=== PATIENT | female | born 1975 | race Caucasian/White ===

== ENCOUNTER 2016-02-19 16:46 | Emergency (ER) | payer OTHER ==
[2016-02-19 18:32] VITALS: BP 117/74
--- NOTE | 2016-02-19 18:38 | UC ---
Dental HPI - HPI Summary HPI Summary: all lower teeth pulled by dentist yesterday. Pain today and she thinks it is draining a lot of fluid. Minimal bleeding. She states dentist did not give her anything for pain, no antibiotic indicated. No fever. No vomiting. She is a chronic pain patient, uses weekly Butrans patch and also TID tramadol. She says she has more tramadol left. Can't take NSAIDs because of potential interaction with other meds. - History of Current Complaint Chief Complaint: UCDentalProblem Stated Complaint: DENTAL Time Seen by Provider: 02/19/16 18:19 Hx Obtained From: Patient Hx Last Menstrual Period: N/A Onset/Duration: Gradual Onset, Lasting Days - 2 Severity: Moderate Aggravating: Chewing Alleviating: Nothing Related History: Previous Dental Care on Same Tooth - all teeth extracted yesterday - Allergies/Home Medications Allergies/Adverse Reactions: Allergies Allergy/AdvReac Type Severity Reaction Status Date / Time Penicillins Allergy Severe Hives, Verified 02/19/16 18:32 lips swelling Gabapentin Allergy Hives Verified 02/19/16 18:32 PMH/Surg Hx/FS Hx/Imm Hx Endocrine History Of: Reports: Diabetes - 02/02/16 was out of insulin for 12 days and was able to start again Denies: Thyroid Disease, Hyperthyroidism, Hypothyroidism, Dyslipidemia Cardiovascular History Of: Reports: Hypertension Denies: Cardiac Disorders, Pacemaker/ICD, Myocardial Infarction, Congestive Heart Failure, Atrial Fibrillation, Deep Vein Thrombosis, Bleeding Disorders Respiratory History Of: Reports: Asthma Denies: COPD, Bronchitis, Pneumonia, Pulmonary Embolism GI/ History Of: Reports: Gall Bladder Disease Denies: Gastroesophageal Reflux, Ulcer, Gastrointestinal Bleed, Kidney Stones , Diverticulitis, Renal Disease, Urosepsis Neurological History Of: Reports: Migraine Denies: TIA, CVA, Dementia, Seizures Psychological History Of: Reports: Anxiety, Depression Denies: Bipolar Disorder, Schizophrenia, Post Traumatic Stress Disorder Cancer History Of: Denies: Lung Cancer, Colorectal Cancer, Breast Cancer, Prostate Cancer, Cervical Cancer Other History Of: Anticoagulant Therapy - Aspirin 81 mg/day. Negative For: HIV, Hepatitis B, Hepatitis C - Surgical History Surgical History: Yes Surgery Procedure, Year, and Place: cardiac catheterization about 05/2012, hysterectomy, bilateral carpal tunneL, left ulnar nerve surgery - Family History Known Family History: Positive: Hypertension, Diabetes, Respiratory Disease - Social History Occupation: Disabled Lives: With Family Alcohol Use: None Substance Use Type: None Smoking Status (MU): Former Smoker Type: Cigarettes Amount Used/How Often: 5 cigarettes/day Have You Smoked in the Last Year: Yes Household Exposure Type: Cigarettes Review of Systems Constitutional: Negative Skin: Negative Eyes: Negative ENT: Dental Pain Respiratory: Negative Cardiovascular: Negative Gastrointestinal: Negative Genitourinary: Negative Motor: Negative Neurovascular: Negative Musculoskeletal: Negative Neurological: Negative Psychological: Negative All Other Systems Reviewed And Are Negative: Yes Physical Exam Triage Information Reviewed: Yes Appearance: Well-Appearing, Well-Nourished, Pain Distress - appears uncomfortable; not drooling or spitting into cup. Vital Signs: Initial Vital Signs Temp 98.6 F 02/19/16 18:26 Pulse 89 02/19/16 18:26 Resp 22 02/19/16 18:26 BP 117/74 02/19/16 18:26 Vital Signs Reviewed: Yes Eye Exam: Normal ENT: Positive: Hearing grossly normal, Pharynx normal. Negative: Nasal congestion, Nasal drainage, Tonsillar swelling, Tonsillar exudate, Trismus, Muffled/hoarse voice Dental: Positive: Other: - all lower teeth extracted; sutures in place. Gums mildly swollen. No obvious pus drainage. No active bleeding Neck exam: Normal Neck: Positive: Supple Respiratory Exam: Normal Cardiovascular Exam: Normal Musculoskeletal Exam: Normal Neurological Exam: Normal Psychological Exam: Normal Skin Exam: Normal Dental Complaint Course/Dx - Differential Dx/Diagnosis Differential Diagnosis/Dx: Odontogenic Pain, Peridontic Disease, Post Extraction Pain Provider Diagnoses: post extraction pain Discharge - Discharge Plan Condition: Stable Disposition: HOME Prescriptions: Cephalexin CAP* [Keflex CAP*] 500 mg PO TID #30 cap Lidocaine 2% VISCOUS* 3 ml TOPICAL Q3HR PRN #1 btl PRN Reason: mouth pain Patient Education Materials: Toothache (ED) Referrals: Lizbeth Graff PA [Primary Care Provider] - Additional Instructions: continue your usual pain medications. If the gums are hurting, paint the numbing solution on the area. Ice often helps as well. Rinse with salt water if you are getting a lot of drainage. Call the dentist tomorrow if you are still having problems
== END 2016-02-19 18:45 | disposition home or self-care (01) ==
LOC: UCCORT 16:46
DX: K08.409 Partial loss of teeth, unspecified cause, unspecified class (principal); E11.9 Type 2 diabetes mellitus without complications; Z88.0 Allergy status to penicillin; Z88.8 Allergy status to other drugs, medicaments and biological substances; Z79.4 Long term (current) use of insulin; Z87.891 Personal history of nicotine dependence
CPT/HCPCS: 99212; G0463

== ENCOUNTER 2016-03-11 12:15 | Emergency (ER) | payer OTHER ==
[2016-03-11 12:57] VITALS: BP 117/59
[2016-03-11] MEDS ORDERED: Ketorolac INJ* 60 MG/2 ML VIAL IM ONE (13:01)
[2016-03-11] MEDS ORDERED: HYDROcodone/ACETAMIN 5-325 MG* 1 TAB PO ONE (13:02)
--- NOTE | 2016-03-11 13:12 | UC ---
Abdominal Pain Female HPI - HPI Summary HPI Summary: 40 Y/O FEMALE WITH PMHX OF DM, CHRONIC PANCREATITIS , CHRONIC PAIN 4 DAYS HX OF EPIGASTRIC ABDOMINAL PAIN MUCH WORSE OVER THE PAST 1 DAY, RADIATING TO HER BACK , MILD NAUSEA AND SOME DIARRHEA, NO FEVER, NO CHILLS, NO DYSURIA - History of Current Complaint Chief Complaint: UCAbdominalPain Stated Complaint: ABD PAIN/HIP PAIN Time Seen by Provider: 03/11/16 12:18 Hx Obtained From: Patient Hx Last Menstrual Period: N/A Onset/Duration: Gradual Onset, Lasting Days - 1, Still Present Timing: Constant Severity Initially: Moderate Severity Currently: Moderate Location: Epigastric Radiates: Yes Radiates to: Back Character: Aching Aggravating Factor(s): Food, Movement Alleviating Factor(s): Nothing Associated Signs and Symptoms: Positive: Back Pain, Decreased Appetite, Nausea, Diarrhea. Negative: Fever, Cough, Chest Pain, Dizzy, Constipation, Blood in Stool, Urinary Symptoms, Vaginal Bleeding, Vaginal Discharge, Vomiting Allergies/Adverse Reactions: Allergies Allergy/AdvReac Type Severity Reaction Status Date / Time Penicillins Allergy Severe Hives, Verified 03/11/16 12:45 lips swelling Gabapentin Allergy Hives Verified 03/11/16 12:45 OTHER: VARIOUS HTN, ABX MEDS Allergy Difficulty Uncoded 03/11/16 12:45 UNKNOW Breathing PMH/Surg Hx/FS Hx/Imm Hx Endocrine History Of: Reports: Diabetes - 02/02/16 was out of insulin for 12 days and was able to start again Denies: Thyroid Disease, Hyperthyroidism, Hypothyroidism, Dyslipidemia Cardiovascular History Of: Reports: Hypertension Denies: Cardiac Disorders, Pacemaker/ICD, Myocardial Infarction, Congestive Heart Failure, Atrial Fibrillation, Deep Vein Thrombosis, Bleeding Disorders Respiratory History Of: Reports: Asthma Denies: COPD, Bronchitis, Pneumonia, Pulmonary Embolism GI/ History Of: Reports: Gall Bladder Disease Denies: Gastroesophageal Reflux, Ulcer, Gastrointestinal Bleed, Kidney Stones , Diverticulitis, Renal Disease, Urosepsis Neurological History Of: Reports: Migraine Denies: TIA, CVA, Dementia, Seizures Psychological History Of: Reports: Anxiety, Depression Denies: Bipolar Disorder, Schizophrenia, Post Traumatic Stress Disorder Cancer History Of: Denies: Lung Cancer, Colorectal Cancer, Breast Cancer, Prostate Cancer, Cervical Cancer Other History Of: Anticoagulant Therapy - Aspirin 81 mg/day. Negative For: HIV, Hepatitis B, Hepatitis C - Surgical History Surgical History: Yes Surgery Procedure, Year, and Place: cardiac catheterization about 05/2012, hysterectomy, bilateral carpal tunneL, left ulnar nerve surgery - Family History Known Family History: Positive: Hypertension, Diabetes, Respiratory Disease - Social History Alcohol Use: None Substance Use Type: None Smoking Status (MU): Heavy Every Day Tobacco Smoker Type: Cigarettes Amount Used/How Often: <1 PPD Length of Time of Smoking/Using Tobacco: 24 Years Have You Smoked in the Last Year: Yes Household Exposure Type: Cigarettes - Immunization History Most Recent Influenza Vaccination: November 2015 Review of Systems Constitutional: Chills, Fatigue Skin: Negative Eyes: Negative ENT: Negative Respiratory: Negative Cardiovascular: Negative Gastrointestinal: Abdominal Pain, Diarrhea Genitourinary: Negative All Other Systems Reviewed And Are Negative: Yes Physical Exam Triage Information Reviewed: Yes Appearance: Ill-Appearing Vital Signs: Initial Vital Signs Temp 98.2 F 03/11/16 12:43 Pulse 104 03/11/16 12:43 Resp 16 03/11/16 12:43 BP 117/59 03/11/16 12:43 Pulse Ox 97 03/11/16 12:43 Eye Exam: Normal Eyes: Positive: Conjunctiva Clear ENT: Positive: Normal ENT inspection, Hearing grossly normal, Pharynx normal Neck: Positive: Supple, Nontender, No Lymphadenopathy Respiratory: Positive: Chest non-tender, Lungs clear, Normal breath sounds Cardiovascular: Positive: RRR, No Murmur, Pulses Normal Abdomen Description: Positive: Soft, Other: - RUQ ABDOMINAL TENDERNESS / EPIGASTRIC TENDERNESS. Negative: CVA Tenderness (R), CVA Tenderness (L), Distended, Guarding Bowel Sounds: Positive: Present Musculoskeletal: Positive: Strength Intact, No Edema Neurological: Positive: Alert Skin Exam: Normal Abd Pain Female Course/Dx - Course Course Of Treatment: ABDOMINAL PAIN. HX OF DM , CHRONIC PANCREATITIS ,. WILL TRANSFER THE PT. TO [facility] , SPOKE TO DR WALKER ABOUT THE TRANSFER. IT IS THE PTS REQUESTS TO GO TO [facility] AND NOT [facility] - Differential Dx/Diagnosis Provider Diagnoses: ABDOMINAL PAIN Discharge - Discharge Plan Condition: Fair Disposition: TRANS HIGHER LVL OF CARE FAC
== END 2016-03-11 13:27 | disposition short-term general hospital (02) ==
LOC: UCCORT 12:15
DX: R10.13 Epigastric pain (principal); R11.0 Nausea; R19.7 Diarrhea, unspecified; Z88.0 Allergy status to penicillin; Z88.8 Allergy status to other drugs, medicaments and biological substances; F17.210 Nicotine dependence, cigarettes, uncomplicated
CPT/HCPCS: 99213; G0463

== ENCOUNTER 2016-03-11 14:24 | Emergency (ER) | payer OTHER ==
[2016-03-11] MEDS ORDERED: Ondansetron INJ* 2 MG/ML VIAL IV ONE (14:58)
[2016-03-11] MEDS ORDERED: Ketorolac INJ* 30 MG/ML 1 ML VIAL IV ONE (14:58)
[2016-03-11] MEDS ORDERED: Morphine INJ* 4 MG/ML 1 ML CARPUJECT IV ONE (14:58)
[2016-03-11] MEDS: NS 0.9% 1000 ML* 2,000 ML IV ONE ×2 (15:00→17:00)
[2016-03-11 15:09] LABS: Hematocrit 43 % (35-47); Hemoglobin 14.5 g/dl (12.0-16.0); Mean Corpuscular HGB Conc 34 g/dl (31-36); Mean Corpuscular Hemoglobin 32 pg (27-31); Mean Corpuscular Volume 95 fL (80-97); Mean Platelet Volume 8 um3 (7.4-10.4); Red Blood Count 4.48 10^6/ul (4.0-5.4); Red Cell Distribution Width 14 % (10.5-15)
[2016-03-11 15:21] LABS: Albumin 3.9 g/dL (3.2-5.2); BUN/Creatinine Ratio 7.8 (8-20); C Reactive Protein 25.35 mg/L (< 5.00); Calcium 9.1 mg/dL (8.6-10.3); EGFR African American 172.7 (>60); EGFR Non-African American 134.3 (>60); Globulin 2.8 g/dL (2-4); Potassium 3.8 mmol/L (3.5-5.0); Total Bilirubin 0.4 mg/dL (0.2-1.0); Total Protein 6.7 g/dL (6.4-8.9)
[2016-03-11 15:30] LABS: Urine Bacteria Absent (Absent); Urine Bilirubin Negative (Negative); Urine Glucose 3+(>=500 mg/dL) (Negative); Urine Nitrite Negative (Negative)
[2016-03-11] MEDS ORDERED: HYDROmorphone INJ* 1 MG/ML CARPUJECT SYRINGE IV ONE ×2 (16:00→17:39)
[2016-03-11] MEDS ORDERED: NS 0.9% 1000 ML* 2,000 ML IV ONE (16:52)
[2016-03-11] MEDS ORDERED: Iodixanol* (CONTRAST) 320 MG/ML 100 ML SDV IV ONE (17:04)
--- NOTE | 2016-03-11 18:30 | RAD ---
INDICATION: Abdominal pain COMPARISON: CT abdomen and pelvis 01/25/2016 TECHNIQUE: Axial source images were obtained from the hemidiaphragms to the symphysis pubis following administration of oral and intravenous contrast. 125 mL Visipaque 320 was utilized. Coronal and sagittal reconstructed images were acquired. Lung bases: There is bibasilar atelectasis, unchanged. There are no effusions. Liver: The liver is enlarged with findings of hepatic steatosis. There are no masses. There is no ductal dilatation. Gallbladder: There are no calcified gallstones. There is no evidence of wall thickening or pericholecystic fluid. Spleen: The spleen is normal in size. There are no masses. Pancreas: There is no focal pancreatic mass or ductal dilatation. Adrenal glands: There is no evidence of adrenal mass. Kidneys: The kidneys are normal in size and position. There are prompt nephrograms and there is prompt excretion bilaterally. There are no renal parenchymal masses. There is no evidence of nephrolithiasis. Adenopathy: There is no evidence of adenopathy by size criteria. Fluid collections: There are no free or localized fluid collections. Vessels:There are no significant atherosclerotic changes involving the aorta. There is no focal aneurysm. The iliac vessels are normal in caliber. The IVC appears normal. GI tract: There are no acute CT bowel findings. There is no obstruction. The stomach and small bowel appear normal. The lower GI tract is normal. The cecum, ileocecal valve, and terminal ileum appear normal. The appendix is visualized and appear normal. Pelvic organs: There is hysterectomy. There is no adnexal mass Bladder: There are no bladder masses. Abdominal and pelvic soft tissues: The extraperitoneal abdominal and pelvic soft tissues appear normal.. Osseous structures: There are no acute osseous findings. Other: None IMPRESSION: NO ACUTE CT FINDINGS. NO MASS OR INFLAMMATORY CHANGE. HEPATIC STEATOSIS
[2016-03-11 19:38] VITALS: BP 85/40
--- NOTE | 2016-03-11 20:02 | ED ---
Kayden Malhotra Janilya, scribed for Gage Garduno MD on 03/11/16 at 1503 . Abdominal Pain/Female - HPI Summary HPI Summary: A 40 y/o female [facility] [facility] presenting w/ a gradual onset of constant abd pain starting 3 days ago. Severity rated 9/10. Eating makes the pain worse. Pt reports n/v/d, cold sweats, burning urinating. Pt denies fever. Pt takes aspirin. Pt has her gallbladder, appendix intact. Pt did not have Caesarean section. PMHx DMII for 7 years. PSHx endoscopic procedure w/ biopsy 2 weeks ago in [place]. - History of Current Complaint Chief Complaint: EDAbdPain Stated Complaint: ABD PAIN Time Seen by Provider: 03/11/16 14:34 Hx Obtained From: Patient Hx Last Menstrual Period: N/A Onset/Duration: Gradual Onset, Lasting Days, Still Present Timing: Constant Severity Initially: Moderate Severity Currently: Moderate Pain Intensity: 9 Pain Scale Used: 0-10 Numeric Location: Diffuse Radiates: No Character: Dull Aggravating Factor(s): Food Alleviating Factor(s): Nothing Associated Signs and Symptoms: Positive: Negative, Nausea, Vomiting, Diarrhea Allergies/Adverse Reactions: Allergies Allergy/AdvReac Type Severity Reaction Status Date / Time Penicillins Allergy Severe Hives, Verified 03/11/16 12:45 lips swelling Gabapentin Allergy Hives Verified 03/11/16 12:45 OTHER: VARIOUS HTN, ABX MEDS Allergy Difficulty Uncoded 03/11/16 12:45 UNKNOW Breathing Home Medications: Home Medications Magnesium Chloride EC TAB* [Slow Mag EC TAB*] 64 mg PO DAILY 03/11/16 [History Confirmed 03/11/16] Metoprolol Succinate XL TAB* [Toprol XL TAB*] 25 mg PO DAILY 03/11/16 [History Confirmed 03/11/16] QUEtiapine TAB* [SEROquel TAB*] 200 mg PO BEDTIME 03/11/16 [History Confirmed ] traMADol TAB* [Ultram*] 50 mg PO TID PRN MDD 150 mg 03/11/16 [History Confirmed 03/11/16] PMH/Surg Hx/FS Hx/Imm Hx Endocrine/Hematology History: Reports: Hx Anticoagulant Therapy - Aspirin 81 mg/ day., Hx Diabetes - 02/02/16 was out of insulin for 12 days and was able to start again Denies: Hx Thyroid Disease Cardiovascular History: Reports: Hx Hypertension Denies: Hx Congestive Heart Failure, Hx Deep Vein Thrombosis, Hx Myocardial Infarction, Hx Pacemaker/ICD Respiratory History: Reports: Hx Asthma, Hx Chronic Bronchitis, Hx Seasonal Allergies Denies: Hx Chronic Obstructive Pulmonary Disease (COPD), Hx Lung Cancer, Hx Pneumonia, Hx Pulmonary Embolism GI History: Reports: Hx Gall Bladder Disease, Hx Gastroesophageal Reflux Disease , Other GI Disorders - Pancreatitis Denies: Hx Gastrointestinal Bleed, Hx Ulcer, Hx Urosepsis History: Denies: Hx Kidney Stones, Hx Renal Disease Musculoskeletal History: Reports: Hx Arthritis, Hx Fibromyalgia, Hx Scoliosis Sensory History: Denies: Hx Hearing Aid Neurological History: Reports: Hx Headaches, Hx Migraine Denies: Hx Dementia, Hx Seizures, Hx Transient Ischemic Attacks (TIA) Psychiatric History: Reports: Hx Anxiety, Hx Depression Denies: Hx Panic Disorder, Hx Schizophrenia, Hx Bipolar Disorder - Surgical History Surgery Procedure, Year, and Place: cardiac catheterization about 05/2012, hysterectomy, bilateral carpal tunneL, left ulnar nerve surgery Infectious Disease History: No Infectious Disease History: Denies: Traveled Outside the [place] in Last 30 Days - Family History Known Family History: Positive: Hypertension, Diabetes, Respiratory Disease - Social History Alcohol Use: None Substance Use Type: Reports: None Smoking Status (MU): Heavy Every Day Tobacco Smoker Type: Cigarettes Amount Used/How Often: <1 PPD Length of Time of Smoking/Using Tobacco: 24 Years Have You Smoked in the Last Year: Yes Review of Systems Constitutional: Other - cold sweats Negative: Fever Positive: Abdominal Pain, Vomiting, Diarrhea, Nausea Positive: burning All Other Systems Reviewed And Are Negative: Yes Physical Exam Triage Information Reviewed: Yes Vital Signs On Initial Exam: Initial Vitals Temp Pulse Resp BP Pulse Ox 97.6 F 88 18 103/62 95 03/11/16 14:30 03/11/16 14:30 03/11/16 14:30 03/11/16 14:30 03/11/16 14:30 Vital Signs Reviewed: Yes Appearance: Positive: Well-Appearing, Pain Distress - mildly Skin: Positive: Warm, Skin Color Reflects Adequate Perfusion, Dry Head/Face: Positive: Normal Head/Face Inspection Eyes: Positive: EOMI, GUANACO ENT: Positive: Normal ENT inspection Neck: Positive: Supple, Nontender Respiratory/Lung Sounds: Positive: Clear to Auscultation, Breath Sounds Present Cardiovascular: Positive: RRR Abdomen Description: Positive: Other: - Abd diffusely tender, more in LUQ. Negative: Nontender Bowel Sounds: Positive: Present Musculoskeletal: Positive: Normal, Strength/ROM Intact Neurological: Positive: Normal, Sensory/Motor Intact, Alert, Oriented to Person Place, Time Psychiatric: Positive: Affect/Mood Appropriate Diagnostics - Vital Signs Vital Signs Temp Pulse Resp BP Pulse Ox 03/11/16 14:30 97.6 F 88 18 103/62 95 - Laboratory Lab Results: Lab Results 03/11/16 03/11/16 03/11/16 Range/Units 14:45 14:45 14:45 WBC 6.0 (3.5-10.8) 10^3/ul RBC 4.48 (4.0-5.4) 10^6/ul Hgb 14.5 (12.0-16.0) g/dl Hct 43 (35-47) % MCV 95 (80-97) fL MCH 32 H (27-31) pg MCHC 34 (31-36) g/dl RDW 14 (10.5-15) % Plt Count 172 (150-450) 10^3/ul MPV 8 (7.4-10.4) um3 Neut % (Auto) 51.7 (38-83) % Lymph % (Auto) 39.5 (25-47) % Grady % (Auto) 6.4 (1-9) % Eos % (Auto) 1.8 (0-6) % Baso % (Auto) 0.6 (0-2) % Absolute Neuts (auto) 3.1 (1.5-7.7) 10^3/ul Absolute Lymphs (auto) 2.4 (1.0-4.8) 10^3/ul Absolute Monos (auto) 0.4 (0-0.8) 10^3/ul Absolute Eos (auto) 0.1 (0-0.6) 10^3/ul Absolute Basos (auto) 0 (0-0.2) 10^3/ul Absolute Nucleated RBC 0 10^3/ul Nucleated RBC % 0.1 Sodium 137 (133-145) mmol/L Potassium 3.8 (3.5-5.0) mmol/L Chloride 101 (101-111) mmol/L Carbon Dioxide 28 (22-32) mmol/L Anion Gap 8 (2-11) mmol/L BUN 4 L (6-24) mg/dL Creatinine 0.51 (0.51-0.95) mg/dL Est GFR ( Amer) 172.7 (>60) Est GFR (Non-Af Amer) 134.3 (>60) BUN/Creatinine Ratio 7.8 L (8-20) Glucose 363 H (70-100) mg/dL POC Glucose (mg/dL) (74-106) mg/dL Lactic Acid 2.8 H* (0.5-2.0) mmol/L Calcium 9.1 (8.6-10.3) mg/dL Total Bilirubin 0.40 (0.2-1.0) mg/dL AST 43 H (13-39) U/L ALT 42 (7-52) U/L Alkaline Phosphatase 77 (34-104) U/L Total Creatine Kinase 55 (10-223) U/L C-Reactive Protein 25.35 H (< 5.00) mg/L Total Protein 6.7 (6.4-8.9) g/dL Albumin 3.9 (3.2-5.2) g/dL Globulin 2.8 (2-4) g/dL Albumin/Globulin Ratio 1.4 (1-3) Lipase 140 H (11.0-82.0) U/L Beta HCG, Quant 3.62 mIU/mL Urine Color Urine Appearance Urine pH (5-9) Ur Specific [place] (1.010-1.030) Urine Protein (Negative) Urine Ketones (Negative) Urine Blood (Negative) Urine Nitrate (Negative) Urine Bilirubin (Negative) Urine Urobilinogen (Negative) Ur Leukocyte Esterase (Negative) Urine WBC (Auto) (Absent) Urine RBC (Auto) (Absent) Ur Squamous Epith Cells (Absent) Urine Bacteria (Absent) Urine Glucose (Negative) 03/11/16 03/11/16 Range/Units 15:13 17:14 WBC (3.5-10.8) 10^3/ul RBC (4.0-5.4) 10^6/ul Hgb (12.0-16.0) g/dl Hct (35-47) % MCV (80-97) fL MCH (27-31) pg MCHC (31-36) g/dl RDW (10.5-15) % Plt Count (150-450) 10^3/ul MPV (7.4-10.4) um3 Neut % (Auto) (38-83) % Lymph % (Auto) (25-47) % Grady % (Auto) (1-9) % Eos % (Auto) (0-6) % Baso % (Auto) (0-2) % Absolute Neuts (auto) (1.5-7.7) 10^3/ul Absolute Lymphs (auto) (1.0-4.8) 10^3/ul Absolute Monos (auto) (0-0.8) 10^3/ul Absolute Eos (auto) (0-0.6) 10^3/ul Absolute Basos (auto) (0-0.2) 10^3/ul Absolute Nucleated RBC 10^3/ul Nucleated RBC % Sodium (133-145) mmol/L Potassium (3.5-5.0) mmol/L Chloride (101-111) mmol/L Carbon Dioxide (22-32) mmol/L Anion Gap (2-11) mmol/L BUN (6-24) mg/dL Creatinine (0.51-0.95) mg/dL Est GFR ( Amer) (>60) Est GFR (Non-Af Amer) (>60) BUN/Creatinine Ratio (8-20) Glucose (70-100) mg/dL POC Glucose (mg/dL) 264 H (74-106) mg/dL Lactic Acid (0.5-2.0) mmol/L Calcium (8.6-10.3) mg/dL Total Bilirubin (0.2-1.0) mg/dL AST (13-39) U/L ALT (7-52) U/L Alkaline Phosphatase (34-104) U/L Total Creatine Kinase (10-223) U/L C-Reactive Protein (< 5.00) mg/L Total Protein (6.4-8.9) g/dL Albumin (3.2-5.2) g/dL Globulin (2-4) g/dL Albumin/Globulin Ratio (1-3) Lipase (11.0-82.0) U/L Beta HCG, Quant mIU/mL Urine Color Yellow Urine Appearance Cloudy Urine pH 5.0 (5-9) Ur Specific [place] 1.032 H (1.010-1.030) Urine Protein Negative (Negative) Urine Ketones Negative (Negative) Urine Blood Negative (Negative) Urine Nitrate Negative (Negative) Urine Bilirubin Negative (Negative) Urine Urobilinogen Negative (Negative) Ur Leukocyte Esterase Trace H (Negative) Urine WBC (Auto) Trace(0-5/hpf) (Absent) Urine RBC (Auto) Absent (Absent) Ur Squamous Epith Cells Present H (Absent) Urine Bacteria Absent (Absent) Urine Glucose 3+(>=500 mg/dl) H (Negative) Result Diagrams: 03/11/16 14:45 03/11/16 14:45 Lab Statement: Any lab studies that have been ordered have been reviewed, and results considered in the medical decision making process. - CT abd/pel CT Interpretation: No Acute Changes - IMPRESSION: NO ACUTE CT FINDINGS. NO MASS OR INFLAMMATORY CHANGE. HEPATIC STEATOSIS CT Interpretation Completed By: Radiologist Abdominal Pain Fem Course/Dx - Course Course Of Treatment: PATIENT HAS HD THIS PAIN FOR MONTHS AND IS SEEN IN THE PAIN CLINIC. DISCUSSED RESULTS WITH PATIENT WHO REQUESTS ADMISSION. HOSPITALIST SAW PATIENT IN CONSULTATION. SEE THEIR CONSULTATION NOTE. DISCHARGE HOME STABLE. - Diagnoses Provider Diagnoses: Chronic abdominal pain - Provider Notifications Discussed Care Of Patient With: Dr. Hanley (hospitalist) at 1830: agrees to evaluate pt for admission. Discharge - Discharge Plan Condition: Stable Disposition: HOME Patient Education Materials: Abdominal Pain (ED) Referrals: [facility] [Outside] Lizbeth Graff PA [Primary Care Provider] - Additional Instructions: FOLLOW UP WITH YOUR DOCTOR. FOLLOW UP WITH THE PAIN MEDICINE CLINIC. RETURN TO THE EMERGENCY DEPARTMENT FOR ANY WORSENING OF YOUR CONDITION OR QUESTIONS OR CONCERNS. The documentation as recorded by the Kayden le Janilya accurately reflects the service I personally performed and the decisions made by me, Gage Garduno MD.
--- NOTE | 2016-03-11 23:52 | CONS ---
CONSULTATION REPORT: DATE OF CONSULT: 03/11/16 - EMERGENCY DEPT PRIMARY CARE PROVIDER: JOY Banks PAIN MANAGEMENT PROVIDER: Adeline Angela NP CONSULTING PROVIDER: JOY Cornell SUPERVISING PHYSICIAN: Armand Kelly MD REQUESTING PROVIDER: Emergency department physician, Dr. Garduno. CHIEF COMPLAINT: Abdominal pain, nausea, and diarrhea. HISTORY OF PRESENT ILLNESS: This is a 40-year-old female with a history of pancreatitis, fibromyalgia, diabetic neuropathy, insulin-dependent diabetes, spinal stenosis, migraine headaches, and carpal tunnel syndrome as well as a relatively recent diagnosis of celiac disease. The patient originally presented to the [facility] earlier today with complaints of upper abdominal pain and reported history of chronic pancreatitis and for this reason , was transferred to the emergency department for further evaluation. The patient underwent thorough workup including a CT of the abdomen and pelvis, which shows no acute etiology for her abdominal pain. The patient received multiple doses of Dilaudid in the emergency department and continued to request more for pain management. She states that she does not feel that her chronic medications are affectively managing her pain. Emergency department provider, Dr. Garduno, requested hospitalist consultation in regards to whether admission was appropriate for pain control. Reviewed pain management notes, her last appointment was at the end of January. Apparently, the patient has not been terribly forthright in regards to prior emergency department visits and other prescribed medications. For this reason, pain management provider appropriately was reluctant to escalate opioid doses at her last appointment despite her continued complaints of severe pain. The conditions of her pain contract were reiterated at that appointment. The patient does admit that her pain today is not terribly different from her chronic pain. She was mostly concerned about the nausea and diarrhea that she has subsequently developed. She has been afebrile at home and the diarrhea has been nonbloody. No associated vomiting. PAST MEDICAL HISTORY: 1. Chronic pancreatitis. 2. Fibromyalgia. 3. Diabetic neuropathy. 4. Spinal stenosis. 5. Migraine headaches. 6. Carpal tunnel syndrome. 7. Insulin-dependent diabetes. 8. Hypertension. 9. Obesity. HOME MEDICATIONS: 1. Xanax 0.5 mg p.o. t.i.d. as needed for anxiety. 2. Nebulized albuterol 2.5 mg/3 mL nebulized q.i.d. as needed for shortness of breath. 3. Aspirin 81 mg p.o. daily. 4. Butrans patch 15 mcg weekly. 5. Cetirizine 10 mg p.o. daily. 6. Depakote 500 mg p.o. at bedtime. 7. Lasix 40 mg p.o. daily. 8. Insulin detemir 60 units subcu in the morning. 9. Humalog KwikPen 10 units subcu at mealtime. 10. Magnesium chloride 64 mg p.o. daily. 11. Metoprolol succinate 25 mg p.o. daily. 12. Relafen 500 mg p.o. 4 times daily. 13. Paxil 40 mg p.o. daily. 14. Lyrica 100 mg p.o. twice daily. 15. Seroquel 200 mg p.o. at bedtime. 16. Simethicone 180 mg p.o. 4 times daily. 17. Ambien 10 mg p.o. at bedtime. 18. Tramadol 50 mg p.o. t.i.d. as needed for breakthrough pain. PHYSICAL EXAM: General: This is a middle-aged obese female, who appears somewhat depressed but is in no acute distress and actually is having difficulty keeping her eyes open during the exam. Initial Vital Signs: Temperature 97.6 degrees Fahrenheit, pulse 88 beats per minute, respiratory rate 18 per minute, oxygen saturation 95% on room air, and blood pressure 103/ 62 mmHg. HEENT: Head is normocephalic and atraumatic with moist mucous membranes. Respiratory: Lungs are clear to auscultation without wheezes, crackles, or rhonchi. Cardiovascular: Heart has a regular rate and rhythm without murmurs, rubs, or gallops. Abdomen: Abdomen is soft. Some tenderness to palpation in the epigastric region and bowel sounds are present. Extremities : No lower extremity edema. Skin: No concerning rashes or lesions. LABORATORY EVALUATION: CBC shows a white blood cell count of 6000; hemoglobin 14.5 g/dL; and platelet count of 172,000. Comprehensive metabolic panel shows a sodium of 137 mmol/L, potassium 3.8 mmol/L , BUN of 4, creatinine 0.51, and random glucose of 363 mg/dL. Lactic acid of 2.8. AST of 43, ALT 42, and alk phos 77. CRP of 25. Lipase 140. Beta-hCG is negative. Urinalysis is positive for trace leuk esterase and glucose. DIAGNOSTIC STUDIES AND IMAGING: CT of the abdomen and pelvis shows no acute pathology. ASSESSMENT AND PLAN: This is a 40-year-old female with a history of chronic pain including pain from chronic pancreatitis, fibromyalgia, diabetic neuropathy , spinal stenosis, migraine headaches, and carpal tunnel syndrome, who presented to the emergency department with complaints of abdominal pain and accompanying nausea and diarrhea. No acute pathology appreciated on workup. Hospitalist group has been asked to help determine appropriate disposition. 1. Abdominal pain - the patient's pain is admittedly consistent with her chronic pain syndrome. I did not feel that a hospitalization admission would be beneficial as anything maybe detrimental to escalate her opioid use. She does seem to be closely followed by the [facility] and does have an upcoming appointment next week. The patient is strongly encouraged to contact their office tomorrow to notify them of her emergency department visit. In regards to her nausea and diarrhea, there is no acute pathology appreciated on workup, she may have a mild viral gastroenteritis that is inducing her new acute symptoms. 2. Celiac disease - the patient states that this is a relatively new diagnosis for her. She is aware that she needs to avoid gluten and it is unclear how consistent she has been with that. Discussed with her about resources available at the [facility] for Healthy Living and suggest that she call for an appointment with the hearing aid specialist to help her any dietary changes that this might help significantly with her abdominal pain and may also be another explanation for her nausea and diarrhea. 3. Insulin-dependent diabetes - the patient has hyperglycemia in the emergency department. Last hemoglobin A1C is from 2012. The patient states that over the last couple of days she has hyperglycemic, but prior to that, her glucose has been relatively well controlled in tight numbers between 90 and 120 mg/dL. 4. Diabetic neuropathy - the patient is strongly encouraged to maintain excellent glucose or glycemic control in order to prevent progression of her neuropathy. 5. Fibromyalgia. 6. Migraine syndrome. DISPOSITION: Discussed with the patient that I do not believe that hospital admission is necessary or appropriate at this time. This is also discussed with emergency department physician. Both the patient and ER physician are in agreement for discharge to home. 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 Some of her symptoms maybe contributed by her celiac disease and recommended contacting the [facility] for Healthy Living. She may also benefit from a celiac or splenic nerve block for relief from her chronic abdominal pain secondary to chronic pancreatitis. JOY CORNELL CC: JOY Banks; Adeline Angela, CUT OUT MACHINE OPERATOR* [id number]/[facility] #: [id number] [facility] CENTERNikunj
== END 2016-03-11 20:51 | disposition home or self-care (01) ==
LOC: ED 14:24
DX: R10.9 Unspecified abdominal pain (principal); G89.29 Other chronic pain; F17.210 Nicotine dependence, cigarettes, uncomplicated; I10 Essential (primary) hypertension; Z79.82 Long term (current) use of aspirin; E11.9 Type 2 diabetes mellitus without complications; Z79.4 Long term (current) use of insulin; Z88.0 Allergy status to penicillin
CPT/HCPCS: 36415; 74177; 80053; 81003; 81015; 82550; 83605; 83690; 84702; 85025; 86140; 87086; 96360; 96374; 96375; 96376; 99213; 99283; G0463; J1170; J1885; J2270; J2405; Q9967

== ENCOUNTER 2016-03-16 10:46 | Emergency (ER) | payer OTHER ==
[2016-03-16 11:53] VITALS: BP 101/58
--- NOTE | 2016-03-16 12:11 | UC ---
Abdominal Pain Female HPI - HPI Summary HPI Summary: chronic abdominal pain x 2 months has been seen by her pcp, ED recently , multiple urgent care visits, no nausea, no vomiting, no diarrhea, no urinary sx. no fever has a appointment to see her GI on 04/08/16 - History of Current Complaint Chief Complaint: UCAbdominalPain Stated Complaint: ABDOMINAL/BACK PAIN LEFT Time Seen by Provider: 03/16/16 11:55 Hx Obtained From: Patient Hx Last Menstrual Period: n/a Onset/Duration: Gradual Onset, Lasting Weeks - 10, Still Present Timing: Constant Severity Initially: Moderate Severity Currently: Moderate Location: Diffuse, Discrete At: LUQ Radiates: Yes Radiates to: Back Character: Aching, Cramping Aggravating Factor(s): Food Alleviating Factor(s): Nothing Associated Signs and Symptoms: Negative: Diaphoresis, Fever, Cough, Chest Pain, Dizzy, Back Pain, Constipation, Blood in Stool, Urinary Symptoms, Decreased Appetite, Vaginal Bleeding, Vaginal Discharge, Nausea, Vomiting, Diarrhea Allergies/Adverse Reactions: Allergies Allergy/AdvReac Type Severity Reaction Status Date / Time Penicillins Allergy Severe Hives, Verified 03/16/16 11:53 lips swelling Gabapentin Allergy Hives Verified 03/16/16 11:53 OTHER: VARIOUS HTN, ABX MEDS Allergy Difficulty Uncoded 03/16/16 11:53 UNKNOW Breathing gluten AdvReac Stomach Uncoded 03/16/16 11:54 Cramps PMH/Surg Hx/FS Hx/Imm Hx Endocrine History Of: Reports: Diabetes - insulin Denies: Thyroid Disease, Hyperthyroidism, Hypothyroidism, Dyslipidemia Cardiovascular History Of: Reports: Cardiac Disorders - heart palpatations, Hypertension Denies: Pacemaker/ICD, Myocardial Infarction, Congestive Heart Failure, Atrial Fibrillation, Deep Vein Thrombosis, Bleeding Disorders Respiratory History Of: Reports: Asthma Denies: COPD, Bronchitis, Pneumonia, Pulmonary Embolism GI/ History Of: Reports: Gall Bladder Disease Denies: Gastroesophageal Reflux, Ulcer, Gastrointestinal Bleed, Kidney Stones , Diverticulitis, Renal Disease, Urosepsis Neurological History Of: Reports: Migraine Denies: TIA, CVA, Dementia, Seizures Psychological History Of: Reports: Anxiety, Depression Denies: Bipolar Disorder, Schizophrenia, Post Traumatic Stress Disorder Cancer History Of: Denies: Lung Cancer, Colorectal Cancer, Breast Cancer, Prostate Cancer, Cervical Cancer Other History Of: Anticoagulant Therapy - Aspirin 81 mg/day. Negative For: HIV, Hepatitis B, Hepatitis C - Surgical History Surgical History: Yes Surgery Procedure, Year, and Place: cardiac catheterization about 05/2012, hysterectomy, bilateral carpal tunneL, left ulnar nerve surgery - Family History Known Family History: Positive: Hypertension, Diabetes, Respiratory Disease - Social History Alcohol Use: None Substance Use Type: None Smoking Status (MU): Light Every Day Tobacco Smoker Type: Cigarettes Amount Used/How Often: <1 PPD Length of Time of Smoking/Using Tobacco: 24 Years Have You Smoked in the Last Year: Yes Household Exposure Type: Cigarettes - Immunization History Most Recent Influenza Vaccination: November 2015 Review of Systems Constitutional: Negative Skin: Negative Eyes: Negative ENT: Negative Gastrointestinal: Abdominal Pain All Other Systems Reviewed And Are Negative: Yes Physical Exam Triage Information Reviewed: Yes Appearance: Well-Appearing, No Pain Distress, Well-Nourished Vital Signs: Initial Vital Signs Temp 98.3 F 03/16/16 11:43 Pulse 91 03/16/16 11:43 Resp 16 03/16/16 11:43 BP 101/58 03/16/16 11:43 Pulse Ox 98 03/16/16 11:43 Vital Signs Reviewed: Yes Eyes: Positive: Conjunctiva Clear ENT: Positive: Normal ENT inspection, Hearing grossly normal, Pharynx normal Neck: Positive: Supple, Nontender, No Lymphadenopathy Respiratory: Positive: Chest non-tender, Lungs clear, Normal breath sounds Cardiovascular: Positive: RRR, No Murmur, Pulses Normal Abdomen Description: Positive: Soft, Other: - diffuse tenderness. Negative: CVA Tenderness (R), CVA Tenderness (L), Distended, Guarding Bowel Sounds: Positive: Present Skin Exam: Normal Abd Pain Female Course/Dx - Differential Dx/Diagnosis Provider Diagnoses: chronic abdominal pain Discharge - Discharge Plan Condition: Stable Disposition: HOME Patient Education Materials: Abdominal Pain (ED) Referrals: Lizbeth Graff PA [Primary Care Provider] - 7 Days Additional Instructions: follow up with your GI doctor on 04/08/16
== END 2016-03-16 12:20 | disposition home or self-care (01) ==
LOC: UCCORT 10:46
DX: R10.9 Unspecified abdominal pain (principal); I10 Essential (primary) hypertension; E11.9 Type 2 diabetes mellitus without complications; F17.210 Nicotine dependence, cigarettes, uncomplicated; Z79.4 Long term (current) use of insulin; Z79.82 Long term (current) use of aspirin; Z88.0 Allergy status to penicillin; Z88.1 Allergy status to other antibiotic agents; Z88.8 Allergy status to other drugs, medicaments and biological substances
CPT/HCPCS: 99212; G0463

== ENCOUNTER 2016-03-24 18:18 | Emergency (ER) | payer OTHER ==
[2016-03-24 20:56] VITALS: BP 112/74
[2016-03-24] MEDS ORDERED: Ondansetron INJ* 2 MG/ML VIAL IV ONE (22:00)
[2016-03-24] MEDS ORDERED: Ketorolac INJ* 30 MG/ML 1 ML VIAL IV ONE (22:00)
--- NOTE | 2016-03-24 22:10 | UC ---
Abdominal Pain Female HPI - HPI Summary HPI Summary: 40 yo female with DM (on insulin) and chronic pancreatitis presents with RUQ pain radiating to back x 3 days n/v no CP or SOB no UTI symptoms - History of Current Complaint Chief Complaint: UCAbdominalPain Stated Complaint: PAIN LEFT SIDE/BACK AND RIGHT SIDE Time Seen by Provider: 03/24/16 21:16 Hx Obtained From: Patient Hx Last Menstrual Period: n/a Onset/Duration: Sudden Onset, Lasting Days - 3 Severity Initially: Severe Severity Currently: Severe Pain Intensity: 8 Pain Scale Used: 0-10 Numeric Location: Discrete At: RUQ Radiates to: Back Character: Colicy Aggravating Factor(s): Nothing Associated Signs and Symptoms: Positive: Back Pain, Decreased Appetite, Nausea, Vomiting, Diarrhea. Negative: Diaphoresis, Fever, Cough, Chest Pain, Dizzy, Constipation, Blood in Stool, Urinary Symptoms Allergies/Adverse Reactions: Allergies Allergy/AdvReac Type Severity Reaction Status Date / Time Penicillins Allergy Severe Hives, Verified 03/24/16 20:44 lips swelling Gabapentin Allergy Hives Verified 03/24/16 20:44 OTHER: VARIOUS HTN, ABX MEDS Allergy Difficulty Uncoded 03/24/16 20:44 UNKNOW Breathing gluten AdvReac Stomach Uncoded 03/24/16 20:44 Cramps PMH/Surg Hx/FS Hx/Imm Hx Endocrine History Of: Reports: Diabetes - insulin Denies: Thyroid Disease, Hyperthyroidism, Hypothyroidism, Dyslipidemia Cardiovascular History Of: Reports: Cardiac Disorders - heart palpatations, Hypertension Denies: Pacemaker/ICD, Myocardial Infarction, Congestive Heart Failure, Atrial Fibrillation, Deep Vein Thrombosis, Bleeding Disorders Respiratory History Of: Reports: Asthma Denies: COPD, Bronchitis, Pneumonia, Pulmonary Embolism GI/ History Of: Reports: Gall Bladder Disease Denies: Gastroesophageal Reflux, Ulcer, Gastrointestinal Bleed, Kidney Stones , Diverticulitis, Renal Disease, Urosepsis Neurological History Of: Reports: Migraine Denies: TIA, CVA, Dementia, Seizures Psychological History Of: Reports: Anxiety, Depression Denies: Bipolar Disorder, Schizophrenia, Post Traumatic Stress Disorder Cancer History Of: Denies: Lung Cancer, Colorectal Cancer, Breast Cancer, Prostate Cancer, Cervical Cancer Other History Of: Anticoagulant Therapy - Aspirin 81 mg/day. Negative For: HIV, Hepatitis B, Hepatitis C - Surgical History Surgical History: Yes Surgery Procedure, Year, and Place: cardiac catheterization about 05/2012, hysterectomy, bilateral carpal tunneL, left ulnar nerve surgery - Family History Known Family History: Positive: Hypertension, Diabetes, Respiratory Disease - Social History Alcohol Use: None Substance Use Type: None Smoking Status (MU): Current Every Day Smoker Type: Cigarettes Amount Used/How Often: 5 CIGS PER DAY Length of Time of Smoking/Using Tobacco: 24 Years Have You Smoked in the Last Year: Yes Household Exposure Type: Cigarettes - Immunization History Most Recent Influenza Vaccination: November 2015 Review of Systems Constitutional: Negative Skin: Negative Eyes: Negative ENT: Negative Respiratory: Negative Cardiovascular: Negative Gastrointestinal: Abdominal Pain, Vomiting Genitourinary: Negative Motor: Negative Neurovascular: Negative Musculoskeletal: Negative Neurological: Negative Psychological: Negative All Other Systems Reviewed And Are Negative: Yes Physical Exam Triage Information Reviewed: Yes Appearance: Well-Appearing, No Pain Distress, Well-Nourished Vital Signs: Initial Vital Signs Temp 97.3 F 03/24/16 20:48 Pulse 91 03/24/16 20:48 Resp 18 03/24/16 20:48 BP 112/74 03/24/16 20:48 Pulse Ox 96 03/24/16 20:48 Vital Signs Reviewed: Yes Eyes: Positive: Conjunctiva Clear ENT: Positive: Hearing grossly normal. Negative: Nasal congestion, Nasal drainage, Trismus, Muffled/hoarse voice Neck: Positive: Supple, Nontender Respiratory: Positive: Lungs clear, Normal breath sounds, No respiratory distress, No accessory muscle use Cardiovascular: Positive: RRR, No Murmur Abdomen Description: Positive: No Organomegaly, Soft. Negative: Nontender - tender RUQ, CVA Tenderness (R), CVA Tenderness (L) Musculoskeletal: Positive: ROM Intact Neurological: Positive: Alert Psychological Exam: Normal Skin Exam: Normal Abd Pain Female Course/Dx - Course Course Of Treatment: d/w with Dr. Minor at [facility]. accepts - Differential Dx/Diagnosis Provider Diagnoses: RUQ abd pain of uncertain cause Discharge - Discharge Plan Condition: Stable Disposition: [facility] Referrals: Lizbeth Graff PA [Primary Care Provider] -
== END 2016-03-24 22:26 | disposition short-term general hospital (02) ==
LOC: UCCORT 18:18
DX: R10.11 Right upper quadrant pain (principal); E11.9 Type 2 diabetes mellitus without complications; Z79.4 Long term (current) use of insulin; K86.1 Other chronic pancreatitis; Z88.0 Allergy status to penicillin; F17.210 Nicotine dependence, cigarettes, uncomplicated
CPT/HCPCS: 96374; 96375; 99213; G0463; J1885; J2405

== ENCOUNTER 2016-03-28 17:25 | Emergency (ER) | payer OTHER | END 2016-03-28 18:30 | disposition left against medical advice (07) | LOC: UCCORT 17:25 | DX: R10.9 Unspecified abdominal pain (principal); Z53.21 Procedure and treatment not carried out due to patient leaving prior to being seen by health care provider ==

== ENCOUNTER 2017-03-22 11:23 | Emergency (ER) | payer OTHER ==
[2017-03-22 12:19] LABS: ABS Basophils 0 10^3/ul (0-0.2); ABS Eosinophils 0.1 10^3/ul (0-0.6); ABS Lymphocytes 2.4 10^3/ul (1.0-4.8); ABS Monocytes 0.5 10^3/ul (0-0.8); ABS Neutrophils 6.7 10^3/ul (1.5-7.7); ABS Nucleated RBC 0 10^3/ul; Eosinophil % 1.4 % (0-6); Hematocrit 45 % (35-47); Hemoglobin 15.5 g/dl (12.0-16.0); Lymphocyte % 24.5 % (25-47); Mean Corpuscular HGB Conc 35 g/dl (31-36); Mean Corpuscular Hemoglobin 33 pg (27-31); Mean Corpuscular Volume 96 fL (80-97); Mean Platelet Volume 8 um3 (7.4-10.4); Nucleated Red Blood Cells % 0.1; Platelet Count 190 10^3/ul (150-450); Red Blood Count 4.64 10^6/ul (4.0-5.4); Red Cell Distribution Width 14 % (10.5-15); White Blood Count 9.8 10^3/ul (3.5-10.8)
[2017-03-22 12:30] LABS: EGFR Non-African American 102.8 (>60)
--- OUTSIDE RECORDS SUMMARY | 2017-03-22 12:48 | XMS REPORT ---
:1975 External Reference #:[id number] Author Organization [facility] Address [address] [place] [address] Phone [phone] Care Team Providers Name Role Phone Fransisco Pacheco DPM Care Team Information Lawn Caretaker Unavailable Lizbeth Dorantes NP Primary Care Physician Unavailable Payers Type Date Identification Numbers Payment Provider Subscriber Commercial Effective: Policy Number: [id number] Isak Cruz 2007 Group Name: [facility] #[id number] PayID: [id number] [place] [address] Workers Compensation Onset: 2009 Policy Number: State Insurance Funmilayo Cruz [id number] Fund Group Number: [id number] [address] [place] [address] PayID: [id number] [place] [address] Problems Date Description Provider Status Onset: 12/10/2010 Lesion of ulnar nerve Brittni Xiong M.D. Active Onset: 12/10/2010 Lesion Median Nerve Other Brittni Xiong M.D. Active Onset: 04/30/2014 Neck pain Erick Lo M.D. Active Onset: 11/29/2012 Shoulder-hand syndrome Erick Lo M.D. Active Onset: 11/29/2012 Myalgia & Myositis Unspec Erick Lo M.D. Active Family History Date Family Member(s) Problem(s) Comments General Cancer General Fibromyalgia General Diabetes, Non Insulin Dependent General Autism Father Hypertension Father Heart Disease Mother Hypertension Mother Heart Disease Mother maternal grandfather-colon cancer,heart issues,DM Mother maternal grandmother-cancer,DM,Heart disease,HTN Social History Type Date Description Comments Marital Status Lives With and children Occupation Disabled ETOH Use Denies alcohol use Recreational Drug Use Denies Drug Use Smoking Patient is a former smoker quit in 02/2017 Daily Caffeine Consumes on average 2 cups of regular coffee per day Exercise Type/Frequency Exercises regularly upper body strengthening and walking Allergies, Adverse Reactions, Alerts Date Description Reaction Status Severity Comments 07/02/2010 Latex active 07/02/2010 Amoxicillin active 11/02/2011 Gabapentin shaky from chest active d/c 10/31,saw [employer]ASS WORK[employer] 11/01 up/can't hold head replaced w/Lyrica up/feeling in lips/tong 04/30/2014 Doxycycline Nausea and Vomiting active 03/04/2017 Adhesives active 03/04/2017 Ketorolac active 03/04/2017 Nicotine active pruritis 03/04/2017 Trazodone active headache,involuntary movements 03/04/2017 Ciprofloxacin active 03/04/2017 Metformin active diarrhea 03/04/2017 Hydromorphone active oversedation at 8mg 03/04/2017 Sucralfate active Medications Medication Date Status Form Strength Qnty SIG Indications Ordering Provider Paxil Active Tablets 30mg 1 by mouth Unknown /0000 every day Mucinex Active Tablets ER 600mg 1 tab by Unknown /0000 12HR mouth twice a day as needed Acetaminophen Active Tablets 500mg 1 Tab By Unknown /0000 Mouth as needed Quetiapine Active Tablets 400mg take one Unknown Fumarate /0000 tablet by mouth once daily at bedtime Sumatriptan Active Tablets 100mg take 1 Unknown Succinate /0000 tab at onset of head ache,may repeat 1 tab after 2h as needed Fexofenadine HCL Active Tablets 180mg 1 po at Unknown /0000 bedtime Fluticasone Active Suspension 50mcg/Act 2 sprays Unknown Propionate /0000 each nostril daily Farxiga Active Tablets 10mg 1 by mouth Unknown /0000 every day Lancets Micro Active for use Unknown Thin /0000 three times per day and prn Lyrica Active Capsules 200mg 1 pill by Unknown /0000 mouth three times a day Free Style Lite Active three Unknown Blood Glucose /0000 times Monitoring daily Loperamide HCL Active take one Unknown /0000 capsule by mouth as needed after each unformed BM Epinephrine Active Solution 0.3mg/0.3 1 Unknown /0000 Auto-Inject ML injection as needed allergic reaction Furosemide 00 Active Tablets 20mg 1 by mouth Unknown /0000 every day Metoprolol Active Tablets ER 25mg 1 by mouth Unknown Succinate ER /0000 24HR every day Cyclobenzaprine Active Tablets 5mg take one Unknown HCL /0000 tablet by mouth every 8 hours prn. may take a second tablet if first not effetive. Diazepam Active Tablets 5mg 1/2 tab Unknown by mouth as needed Basaglar Kwikpen Active Solution 100Unit/M 80 units Unknown Pen-Inject L today 03/18/17 then drops to 40 units Lyrica 01/03 Hx Capsules 50mg 30cap 1 po q am Erick Triana s (in [place], - addition M.D. 04/20 to 75 mg at hs already rx'ed) Lyrica 11/01 Hx Capsules 75mg 60cap 1 po bid Erick Triana s Rafa Lo M.DBaldomero 11/29 Diazepam 10/28 Hx Tablets 5mg 6tabs 1 or 2 po Erick JBaldomero two hours Wally, - prior to M.D. 11/29 repeat up to once per hour if needed. Gabapentin 10/28 Hx Capsules 100mg 60cap 1 po qhs Erick JBaldomero s to start Wally, - and june M.D. 10/31 as tolerated to 2 po qhs then 1 po qam and 2 po hs, gradually up to 3 tid prn pain [place] 05/19 Hx Tablets 250mg 50tab 1 po tid s prn muscle Xiong, - spasm M.D. 11/29 [place] 01/28 Hx Tablets 5-325mg 40tab 1-2 po s q4-6 hr Inga, - prn pain M.D. 11/29 Metformin ER Hx 500mg 90uni 1 po qd Unknown ts - 04/30 Lexapro Hx Tablets 10mg 30tab 1 po qd Unknown / s - 11/29 Motrin Ib Hx Tablets 200mg 60tab prn Unknown / s - 11/29 Losartan 00/00 Hx Tablets 50mg Unknown Potassium /0000 - 04/30 Simvastatin 00 Hx Tablets 10mg Unknown /0000 - 04/30 Invokana Hx Tablets 300mg 1 by mouth Unknown /0000 every day - 03/02 Lantus Solostar Hx Solution 100Unit/M 10 units Unknown /0000 Pen-Inject L daily - 03/02 Tradjenta Hx Tablets 5mg 1 by mouth Unknown /0000 every day - 03/02 Atorvastatin Hx Tablets 10mg 1 by mouth Unknown Calcium /0000 every day - 03/02 Ibuprofen Hx Capsules 600mg as needed Unknown /0000 - 03/02 Chantix Hx Starting 0.5mg 1 po x 11. Unknown /0000 Todd and 2 po - X42,1 po 03/17 everyday 3 days then 1 po bid x 4 days then 2 po bid. Take with food. 1 week before quit date Motrin Ib Hx Tablets 200mg 1-2 twice Unknown /0000 a day as - needed 03/17 Sudafed Hx Tablets 30mg 1-2 tabs Unknown Congestion /0000 every 4-6 - hours as 03/17 needed congestion Triamcinolone Hx apply thin Unknown Acetonide /0000 film - daily as 03/17 Hydrocortisone Hx 2.5% apply to Unknown /0000 affected - area twice 03/17 daily prn Nicotine Hx 1 piece Unknown Polacrilex /0000 every 1-2 - hrs prn 03/17 Multi Vitamin 00 Hx Tablets 1 by mouth Unknown /0000 every day - 03/17 Humalog Kwikpen 00 Hx Solution 100Unit/M inject 20 Unknown /0000 Pen-Inject L units - before 03/17. Levemir 00 Hx Solution 100Unit/M 80 units Unknown Flextouch /0000 Pen-Inject L SQ in - A.M. 03/17 Aspirin 00/ Hx Tablets 81mg 1 by mouth Unknown /0000 every day - 03/17 Prempro 00 Hx Tablets 0.3-1.5mg 1 by mouth Unknown /0000 every day - 03/17 [facility] 00 Hx Tablets 10mg 1 by mouth Unknown /0000 every day - 03/17 Medications Administered in Office Medication Date Status Form Strength Qnty SIG Indications Ordering Provider Depomedrol Administered Injection Brittni 80MG 013 Chidi Xiong Depomedrol Administered Injection Brittni 80MG 012 Chidi Xiong Depomedrol Administered Injection Brittni 80MG 012 Chidi Xiong Depomedrol Administered Injection Brittni 80MG 012 Chidi Xiong Vital Signs Date Vital Result Comment 03/18/2017 Height 64.75 inches 5'4.75" Weight 222.00 lb Heart Rate 100 /min BP Systolic 86 mmHg Ra Regular Cuff BP Diastolic 70 mmHg Ra Regular Cuff BP Systolic Sitting 108 mmHg LA Regular Cuff BP Diastolic Sitting 78 mmHg LA Regular Cuff BP Systolic Standing 104 mmHg LA Regular Cuff BP Diastolic Standing 82 mmHg LA Regular Cuff Respiratory Rate 24 /min Pain Level 8 O2 % BldC Oximetry 95 % BMI (Body Mass Index) 37.2 kg/m2 04/30/2014 Height 63 inches 5'3" Weight 223.00 lb Heart Rate 76 /min BP Systolic Sitting 12 mmHg BP Diastolic Sitting 60 mmHg Pain Level 8 neck/ mookie shoulder BMI (Body Mass Index) 39.5 kg/m2 01/28/2011 Weight 223.00 lb Heart Rate 88 /min BP Systolic 132 mmHg BP Diastolic 80 mmHg Results Description No Information Procedures Date CPT Code Description Status 03/18/2017 64112 EKG Tracing & Interpretation Completed 05/03/201250496 Injection Single Tendon Origin/Insertion Completed 02/03/201232829 Inject Tendon Sheath Or Ligament Aponeurosis Eg Plantar Completed Fascia 10/07/201152434 Inject Tendon Sheath Or Ligament Aponeurosis Eg Plantar Completed Fascia 06/24/201159311 Inject Tendon Sheath Or Ligament Aponeurosis Eg Plantar Completed Fascia 02/02/2011 28334 Neuroplasty &/Or Transposition; Ulnar Nerve At Completed Elbow Encounters Type Date Location Provider CPT E/M Dx Office Visit 03/11/2016 [facility], [place] [address] R10.13 1:14p Hospitalists JOY Zavala K86.1 M79.7 E11.9 Office Visit 04/30/2014 2:20p Neurosurgery Services Erick Lo, 56744 729.1 Of [facility].D. 723.1 Office Visit 11/29/2012 10:40a Neurosurgery Services Erick Lo, 50565 729.1 Of Monitoring Engineer At [facility] 337.21 Office Visit 05/03/2012 11:15a Orthopedic Services Of Brittni Xiong 65385 354.2 Monitoring Engineer At [facility] 726.31 354.0 727.04 Office Visit 02/03/2012 10:15a [facility] Brittni Xiong 91440 726.31 Kassi M.DBaldomero 727.04 Office Visit 01/04/2012 11:00a Neurosurgery Services Erick Lo 84081 722.71 Of Monitoring Engineer M.D. Office Visit 12/21/2011 9:40a Neurosurgery Services Erick Lo 93445 722.71 Of Monitoring Engineer M.D. Office Visit 12/09/2011 10:15a [facility] [employer] [facility] Brittni Xiong 49433 726.31 Kassi Murillo 354.2 Office Visit 11/12/2011 11:40a Neurosurgery Services Erick Lo, 27681 781.0 Of Monitoring Engineer M.DBaldomero 723.1 Office Visit 10/29/2011 9:00a Neurosurgery Services Erick Lo, 79646 781.0 Of Monitoring Engineer M.D. Office Visit 09/09/2011 9:15a [facility] [employer] Brittni Xiong 72725 354.2 Kassi M.DBaldomero 726.31 723.1 Office Visit 07/01/2011 10:45a [facility] [employer] Brittni Xiong 51777 723.1 Monitoring Engineer M.D. Office Visit 06/17/2011 9:30a [facility] [employer] Brittni Xiong 79050 719.41 Kassi M.DBaldomero 719.41 723.1 719.41 723.1 Office Visit 04/15/2011 11:00a [facility] [employer] Brittni Xiong 13460 354.2 Kassi M.Alley 354.1 842.00 Office Visit 12/10/2010 11:00a [facility] [employer] Brittni Xiong 64276 354.2 Kassi Murillo 354.1 Office Visit 10/22/2010 10:15a [facility] [employer] [facility] Brittni Xiong, 16679 354.2 Kassi Murillo 354.1 842.00 Office Visit 09/24/2010 1:45p [facility] Igncaio Roblero M.D. 69370 354.2 At [place] 354.1 Office Visit 08/10/2010 2:15p [facility] Ignacio Roblero M.D. 92520 842.00 At [place] Office Visit 07/02/2010 10:00a [employer] [facility] Brittni Xiong, 51565 354.2 Kassi Murillo Plan of Care Future Appointment(s):03/28/2017 2:00 pm - Samuel Phillips DO FACC at [facility]03/23/2017 11:15 am - Nurse Visit IC at [facility]03/22/2017 11:00 am - Nurse Visit IC at [facility]03/24/2017 11 :00 am - Samuel Phillips DO FACC at [facility]03/18/2017 - Samuel Phillips DO [id number] Encounter for preprocedural cardiovascular examinationNew Orders:Stress Test, Exercise NuclearFollow up:Please have patient sign record release for 1. cardiac catheterization from [facility] 2.echocardiograms, stress test reports and most recent office note from Dr. Hills's office. 3. Recent [facility] ER notes, labs and CT scan from within last week Please schedule exercise stress MPI, 03/24/2017 at [facility] office with tx Follow up after bqcivqrP15.31 Abnormal electrocardiogram [ECG] [EKG]E11.69 Type 2 diabetes mellitus with other specified tgasxyuolubzJ31.201 Nicotine dependence, unspecified, in opagicspnC12.49 Family hx of ischem heart dis and oth dis of the circ sysR00.2 PalpitationsNew Orders:Holter Monitor
--- OUTSIDE RECORDS SUMMARY | 2017-03-22 12:48 | XMS REPORT ---
:1975 External Reference #:[id number] Author Organization [facility] Address [address] [place] [address] Phone [phone] Care Team Providers Name Role Phone Fransisco Pacheco DPM Care Team Information Neuropsychology Director Unavailable Lizbeth Dorantes NP Primary Care Physician Unavailable Payers Type Date Identification Numbers Payment Provider Subscriber Commercial Effective: Policy Number: [id number] Isak Cruz 2007 Group Name: [facility] #[id number] [address] PayID: [id number] [place] [address] Workers Compensation Onset: 2009 Policy Number: State Insurance Funmilayo Cruz [id number] Fund Group Number: [id number] [address] [place] [address] PayID: [id number] [place] [address] Problems Date Description Provider Status Onset: 12/10/2010 [...] Gabapentin shaky from chest active d/c 10/31,saw SAUSAGE COOKER 11/01 up/can't hold head replaced w/Lyrica up/feeling [...] prn muscle Xiong, - spasm M.D. 11/29 [place] 01/28 Hx Tablets 5-325mg 40tab 1-2 po [...] mouth Unknown /0000 every day - 03/17 [facility] 00 Hx Tablets 10mg 1 by [...] Procedures Date CPT Code Description Status 03/18/2017 47864 EKG Tracing & Interpretation Completed 05/03/201201182 Injection Single Tendon Origin/Insertion Completed 02/03/201281297 Inject Tendon Sheath Or Ligament Aponeurosis Eg Plantar Completed Fascia 10/07/201139996 Inject Tendon Sheath Or Ligament Aponeurosis Eg Plantar Completed Fascia 06/24/201193262 Inject Tendon Sheath Or Ligament Aponeurosis Eg Plantar Completed Fascia 02/02/2011 25204 Neuroplasty &/Or Transposition; Ulnar Nerve At Completed Elbow Encounters Type Date Location Provider CPT E/M Dx Office Visit 03/11/2016 [facility], [place] 53734 R10.13 1:14p Hospitalists JOY Zavala K86.1 M79.7 E11.9 Office Visit 04/30/2014 2:20p Neurosurgery Services Erick Lo, 22498 729.1 Of [facility].D. 723.1 Office Visit 11/29/2012 10:40a Neurosurgery Services Erick Lo, 63846 729.1 Of Track Laying Equipment Operator At [facility] 337.21 Office Visit 05/03/2012 11:15a Orthopedic Services Of Brittni Xiong 50733 354.2 Track Laying Equipment Operator At [facility] 726.31 354.0 727.04 Office Visit 02/03/2012 10:15a [facility] Brittni Xiong 67196 726.31 Kassi M.DBaldomero 727.04 Office Visit 01/04/2012 11:00a Neurosurgery Services Erick Lo 69712 722.71 Of Track Laying Equipment Operator M.D. Office Visit 12/21/2011 9:40a Neurosurgery Services Erick Lo 88790 722.71 Of Track Laying Equipment Operator M.D. Office Visit 12/09/2011 10:15a [facility] [employer] [facility] Brittni Xiong 35224 726.31 Kassi Murillo 354.2 Office Visit 11/12/2011 11:40a Neurosurgery Services Erick Lo, 12408 781.0 Of Track Laying Equipment Operator M.DBaldomero 723.1 Office Visit 10/29/2011 9:00a Neurosurgery Services Erick Lo, 02443 781.0 Of Track Laying Equipment Operator M.D. Office Visit 09/09/2011 9:15a [employer] [facility] Brittni Xiong 32502 354.2 Kassi M.DBaldomero 726.31 723.1 Office Visit 07/01/2011 10:45a [facility] [employer] [facility] Brittni Xiong 76274 723.1 Track Laying Equipment Operator M.D. Office Visit 06/17/2011 9:30a [facility] [employer] Brittni Xiong 95258 719.41 Kassi M.DBaldomero 719.41 723.1 719.41 723.1 Office Visit 04/15/2011 11:00a [employer] [facility] Brittni Xiong 35860 354.2 Kassi M.Alley 354.1 842.00 Office Visit 12/10/2010 11:00a [employer] [facility] Brittni Xiong 66167 354.2 Kassi Murillo 354.1 Office Visit 10/22/2010 10:15a [employer] [facility] Brittni Xiong, 10991 354.2 Kassi Murillo 354.1 842.00 Office Visit 09/24/2010 1:45p [facility] Ignacio Robelro M.D. 84152 354.2 At [place] 354.1 Office Visit 08/10/2010 2:15p [facility] Ignacio Roblero M.D. 38918 842.00 At [place] Office Visit 07/02/2010 10:00a [employer] [facility] Brittni Xiong, 95048 354.2 Kassi Murillo Plan of Care Future Appointment(s):03/28/2017 2:00 pm - Samuel Phillips DO FACC at [facility]03/23/2017 11:15 am - Nurse Visit IC at [facility]03/22/2017 11:00 am - Nurse Visit IC at [facility]03/24/2017 11 :00 am - Samuel Phillips DO FACC at [facility]03/18/2017 - Samuel Phillips DO [id number] Encounter for preprocedural cardiovascular examinationNew Orders:Stress Test, Exercise NuclearFollow up:Please have patient sign record release for 1. cardiac catheterization from [facility] 2.echocardiograms, stress test reports and most recent office note from Dr. Hills's office. 3. Recent [facility] ER notes, labs and CT scan from within last week Please schedule exercise stress MPI, 03/24/2017 at [facility] office with vt Follow up after ghvcpmtF66.31 Abnormal electrocardiogram [ECG] [EKG]E11.69 Type 2 diabetes mellitus with other specified dpsofuxoitcpD45.201 Nicotine dependence, unspecified, in ytfhocpegY89.49 Family hx of ischem heart dis and oth dis of the circ sysR00.2 PalpitationsNew Orders:Holter Monitor
--- NOTE | 2017-03-22 12:56 | RAD ---
Indication: Chest pain radiating to the LEFT side of neck and down LEFT arm. Comparison: March 11, 2016 CT abdomen and November 22, 2015 chest radiograph. Technique: Upright AP 1230 hours Report: Obesity limits image quality. Accounting for superimposed soft tissues the lungs and pleural spaces are clear. Negative for cardiomegaly. Upper normal central pulmonary vasculature. Foci of calcific tendinopathy noted at the LEFT shoulder rotator cuff. IMPRESSION: 1. No evidence for acute intrathoracic disease. 2. Incidental note of LEFT shoulder rotator cuff calcific tendinopathy which may be a source of pain. Correlate with clinical assessment
[2017-03-22 15:30] VITALS: BP 121/81
--- NOTE | 2017-03-23 18:12 | ED ---
Boy Malhotra Angela, scribed for Titus Ortiz MD on 03/22/17 at 1138 . HPI Chest Pain - HPI Summary HPI Summary: This pt is a 41 y/o female presenting to [facility] via EMS c/o left sided chest pain for a couple of months. Pt states her pain is intermittent, and it radiates to her neck and down her left arm. She rates her chest pain 6/10 in severity. Pt rates her abd pain 8/10 in severity. She states her chest pain is not elicited on exertion. She reports she was at [facility] today and Dr. Phillips advised the pt to come to the ED due to chest pain. EMS administered 1 nitroglycerin MOTOR BOSS. She does not know the last time she had a cat scan. PMHx: chronic pancreatitis. Pt states she has an upcoming gastric bypass soon and is not allowed to have aspirin but also reports she is allergic to aspirin ( reaction is hives). She reports she can't have NSAIDs either. - History of Current Complaint Time Seen by Provider: 03/22/17 11:25 Hx Obtained From: Patient Hx Last Menstrual Period: n/a Onset/Duration: Started Weeks Ago, Still Present Timing: Intermittent, Lasting Weeks Current Severity: Moderate Pain Intensity: 6 Pain Scale Used: 0-10 Numeric Chest Pain Location: Left Anterior Chest Pain Radiates: Yes Chest Pain Radiates To:: Arm - left, Neck Aggravating Factor(s): Nothing Alleviating Factor(s): Nothing Associated Signs and Symptoms: Positive: Chest Pain, Abdominal Pain - Allergy/Home Medications Allergies/Adverse Reactions: Allergies Allergy/AdvReac Type Severity Reaction Status Date / Time Penicillins Allergy Severe hives, Verified 03/22/17 12:26 lips swelling aspirin Allergy Unknown Hives Verified 03/22/17 12:26 gabapentin Allergy Unknown Hives Verified 03/22/17 12:26 OTHER: VARIOUS HTN, ABX MEDS Allergy Difficulty Uncoded 03/22/17 11:29 UNKNOW Breathing gluten AdvReac Stomach Uncoded 03/22/17 11:29 Cramps Home Medications: Home Medications Cyclobenzaprine TAB* [Flexeril 10 MG TAB*] 10 mg PO TID PRN 03/22/17 [History Confirmed 03/22/17] Dapagliflozin Propanediol [Farxiga] 10 mg PO DAILY 03/22/17 [History Confirmed 03/22/17] Fexofenadine (NF) [Nida 180 (NF)] 180 mg PO DAILY 03/22/17 [History Confirmed 03/22/17] Furosemide TAB* [Lasix TAB*] 20 mg PO DAILY 03/22/17 [History Confirmed 03/22/17 ] Insulin GLARGINE(*) [Lantus(*)] 80 units SUBCUT DAILY 03/22/17 [History Confirmed 03/22/17] Insulin LISPRO* [HumaLOG*] 10 units SUBCUT TID WITH MEALS PRN 03/22/17 [History Confirmed 03/22/17] PARoxetine HCL TAB* [Paxil TAB*] 30 mg PO DAILY 03/22/17 [History Confirmed 08/01] SUMAtriptan TAB* [Imitrex TAB*] 100 mg PO DAILY PRN 03/22/17 [History Confirmed 03/22/17] guaiFENesin ER TAB [Mucinex*] 600 mg PO BID 03/22/17 [History Confirmed 03/22/17 ] PMH/Surg Hx/FS Hx/Imm Hx Endocrine/Hematology History: Reports: Hx Anticoagulant Therapy - Aspirin 81 mg/ day., Hx Diabetes - insulin Denies: Hx Thyroid Disease Cardiovascular History: Reports: Hx Hypertension Denies: Hx Congestive Heart Failure, Hx Deep Vein Thrombosis, Hx Myocardial Infarction, Hx Pacemaker/ICD Respiratory History: Reports: Hx Asthma, Hx Chronic Bronchitis, Hx Seasonal Allergies Denies: Hx Chronic Obstructive Pulmonary Disease (COPD), Hx Lung Cancer, Hx Pneumonia, Hx Pulmonary Embolism GI History: Reports: Hx Gall Bladder Disease, Hx Gastroesophageal Reflux Disease , Other GI Disorders - Pancreatitis Denies: Hx Gastrointestinal Bleed, Hx Ulcer, Hx Urosepsis History: Denies: Hx Kidney Stones, Hx Renal Disease Musculoskeletal History: Reports: Hx Arthritis, Hx Fibromyalgia, Hx Scoliosis Sensory History: Denies: Hx Hearing Aid Neurological History: Reports: Hx Headaches, Hx Migraine Denies: Hx Dementia, Hx Seizures, Hx Transient Ischemic Attacks (TIA) Psychiatric History: Reports: Hx Anxiety, Hx Depression Denies: Hx Panic Disorder, Hx Schizophrenia, Hx Bipolar Disorder - Cancer History Cancer Type, 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 - Surgical History Surgery Procedure, Year, and Place: cardiac catheterization about 05/2012, hysterectomy, bilateral carpal tunneL, left ulnar nerve surgery Infectious Disease History: No Infectious Disease History: Denies: Traveled Outside the [place] in Last 30 Days - Family History Known Family History: Positive: Hypertension, Diabetes, Respiratory Disease - Social History Alcohol Use: None Substance Use Type: Reports: None Smoking Status (MU): Former Smoker Type: Cigarettes Amount Used/How Often: 1/2 PPD Length of Time of Smoking/Using Tobacco: 24 Years Have You Smoked in the Last Year: Yes Review of Systems Negative: Fever, Chills Positive: Chest Pain Positive: Abdominal Pain Musculoskeletal: Negative Skin: Negative Neurological: Negative All Other Systems Reviewed And Are Negative: Yes Physical Exam - Summary Physical Exam Summary: VITAL SIGNS: Reviewed. GENERAL: Patient is a well-developed and nourished (MALE OR FEMALE) who is lying comfortable in the stretcher. Patient is not in any acute respiratory distress. HEAD AND FACE: No signs of trauma. No ecchymosis, hematomas or skull depressions. No sinus tenderness. EYES: PERRLA, EOMI x 2, No injected conjunctiva, no nystagmus. EARS: Hearing grossly intact. Ear canals and tympanic membranes are within normal limits. MOUTH: Oropharynx within normal limits. NECK: Supple, trachea is midline, no adenopathy, no JVD, no carotid bruit, no c- spine tenderness, neck with full ROM. CHEST: Symmetric, no tenderness at palpation LUNGS: Clear to auscultation bilaterally. No wheezing or crackles. CVS: Regular rate and rhythm, S1 and S2 present, no murmurs or gallops appreciated. ABDOMEN: Soft. Left upper quadrant tenderness. No signs of distention. No rebound no guarding, and no masses palpated. Bowel sounds are normal. EXTREMITIES: FROM in all major joints, no edema, no cyanosis or clubbing. NEURO: Alert and oriented x 3. No acute neurological deficits. Speech is normal and follows commands. SKIN: Dry and warm Triage Information Reviewed: Yes Vital Signs On Initial Exam: Initial Vitals Temp Pulse Resp BP Pulse Ox 98.4 F 97 16 111/70 93 03/22/17 11:29 03/22/17 11:29 03/22/17 11:29 03/22/17 11:29 03/22/17 11:29 Vital Signs Reviewed: Yes Diagnostics - Vital Signs Vital Signs Temp Pulse Resp BP Pulse Ox 03/22/17 11:29 98.4 F 97 16 111/70 93 - Laboratory Lab Results: Lab Results 03/22/17 03/22/17 03/22/17 Range/Units 11:43 11:43 11:43 WBC 9.8 (3.5-10.8) 10^3/ul RBC 4.64 (4.0-5.4) 10^6/ul Hgb 15.5 (12.0-16.0) g/dl Hct 45 (35-47) % MCV 96 (80-97) fL MCH 33 H (27-31) pg MCHC 35 (31-36) g/dl RDW 14 (10.5-15) % Plt Count 190 (150-450) 10^3/ul MPV 8 (7.4-10.4) um3 Neut % (Auto) 69.0 (38-83) % Lymph % (Auto) 24.5 L (25-47) % Campbell % (Auto) 4.8 (1-9) % Eos % (Auto) 1.4 (0-6) % Baso % (Auto) 0.3 (0-2) % Absolute Neuts (auto) 6.7 (1.5-7.7) 10^3/ul Absolute Lymphs (auto) 2.4 (1.0-4.8) 10^3/ul Absolute Monos (auto) 0.5 (0-0.8) 10^3/ul Absolute Eos (auto) 0.1 (0-0.6) 10^3/ul Absolute Basos (auto) 0 (0-0.2) 10^3/ul Absolute Nucleated RBC 0 10^3/ul Nucleated RBC % 0.1 APTT (26.0-36.3) seconds Sodium 136 (133-145) mmol/L Potassium 3.5 (3.5-5.0) mmol/L Chloride 101 (101-111) mmol/L Carbon Dioxide 25 (22-32) mmol/L Anion Gap 10 (2-11) mmol/L BUN 6 (6-24) mg/dL Creatinine 0.64 (0.51-0.95) mg/dL Est GFR ( Amer) 132.2 (>60) Est GFR (Non-Af Amer) 102.8 (>60) BUN/Creatinine Ratio 9.4 (8-20) Glucose 216 H (70-100) mg/dL Lactic Acid (0.5-2.0) mmol/L Calcium 9.0 (8.6-10.3) mg/dL Magnesium 1.9 (1.9-2.7) mg/dL Total Bilirubin 0.70 (0.2-1.0) mg/dL AST 42 H (13-39) U/L ALT 49 (7-52) U/L Alkaline Phosphatase 42 (34-104) U/L Total Creatine Kinase 113 (10-223) U/L CK-MB (CK-2) 1.6 (0.6-6.3) ng/mL Troponin I 0.00 (<0.04) ng/mL B-Natriuretic Peptide 12 ( - 100) pg/mL Total Protein 7.3 (6.4-8.9) g/dL Albumin 4.2 (3.2-5.2) g/dL Globulin 3.1 (2-4) g/dL Albumin/Globulin Ratio 1.4 (1-3) Lipase 47 (11.0-82.0) U/L TSH 1.15 (0.34-5.60) mcIU/mL Beta HCG, Quant 3.94 mIU/mL 03/22/17 03/22/17 03/22/17 Range/Units 11:43 11:43 14:26 WBC (3.5-10.8) 10^3/ul RBC (4.0-5.4) 10^6/ul Hgb (12.0-16.0) g/dl Hct (35-47) % MCV (80-97) fL MCH (27-31) pg MCHC (31-36) g/dl RDW (10.5-15) % Plt Count (150-450) 10^3/ul MPV (7.4-10.4) um3 Neut % (Auto) (38-83) % Lymph % (Auto) (25-47) % Campbell % (Auto) (1-9) % Eos % (Auto) (0-6) % Baso % (Auto) (0-2) % Absolute Neuts (auto) (1.5-7.7) 10^3/ul Absolute Lymphs (auto) (1.0-4.8) 10^3/ul Absolute Monos (auto) (0-0.8) 10^3/ul Absolute Eos (auto) (0-0.6) 10^3/ul Absolute Basos (auto) (0-0.2) 10^3/ul Absolute Nucleated RBC 10^3/ul Nucleated RBC % APTT 36.3 (26.0-36.3) seconds Sodium (133-145) mmol/L Potassium (3.5-5.0) mmol/L Chloride (101-111) mmol/L Carbon Dioxide (22-32) mmol/L Anion Gap (2-11) mmol/L BUN (6-24) mg/dL Creatinine (0.51-0.95) mg/dL Est GFR ( Amer) (>60) Est GFR (Non-Af Amer) (>60) BUN/Creatinine Ratio (8-20) Glucose (70-100) mg/dL Lactic Acid 2.9 H* (0.5-2.0) mmol/L Calcium (8.6-10.3) mg/dL Magnesium (1.9-2.7) mg/dL Total Bilirubin (0.2-1.0) mg/dL AST (13-39) U/L ALT (7-52) U/L Alkaline Phosphatase (34-104) U/L Total Creatine Kinase (10-223) U/L CK-MB (CK-2) (0.6-6.3) ng/mL Troponin I 0.01 (<0.04) ng/mL B-Natriuretic Peptide ( - 100) pg/mL Total Protein (6.4-8.9) g/dL Albumin (3.2-5.2) g/dL Globulin (2-4) g/dL Albumin/Globulin Ratio (1-3) Lipase (11.0-82.0) U/L TSH (0.34-5.60) mcIU/mL Beta HCG, Quant mIU/mL Result Diagrams: 03/22/17 11:43 03/22/17 11:43 Lab Statement: Any lab studies that have been ordered have been reviewed, and results considered in the medical decision making process. - Radiology Chest XR Xray Interpretation: Positive (See Comments) - IMPRESSION: 1. No evidence for acute intrathoracic disease. 2. Incidental note of LEFT shoulder rotator cuff calcific tendinopathy which may be a source of pain. Correlate with clinical assessment. Dr. Ortiz has reviewed this radiology report. Radiology Interpretation Completed By: Radiologist - EKG 11:32 Cardiac Rate: NL EKG Rhythm: Sinus Rhythm - at 96 bpm EKG Interpretation: No ST elevations. Q waves in III and aVF. Chest Pain Course/Dx - Course Assessment/Plan: This pt is a 41 y/o female presenting to [facility] via EMS c/o left sided chest pain for a couple of months. Pt states her pain is intermittent , and it radiates to her neck and down her left arm. She rates her chest pain 6/ 10 in severity. Pt rates her abd pain 8/10 in severity. She states her chest pain is not elicited on exertion. She reports she was at [facility] today and Dr. Phillips advised the pt to come to the ED due to chest pain. EMS administered 1 nitroglycerin MOTOR BOSS. She does not know the last time she had a cat scan. PMHx: chronic pancreatitis. Pt states she has an upcoming gastric bypass soon and is not allowed to have aspirin but also reports she is allergic to aspirin (reaction is hives). She reports she can't have NSAIDs either. Test results without any significant abnormalities except for glucose of 116, lactic acid of 2.9. I believe the increased lactic acid is secondary to hyperglycemia. Trop 1 is 0.00 and troponin 2, 4 hours later, is 0.01. EKG shows no ST elevation. Chest XR: 1. No evidence for acute intrathoracic disease. 2. Incidental note of LEFT shoulder rotator cuff calcific tendinopathy which may be a source of pain. Therefore I do not believe the pt has an acute coronary syndrome. I think the pt has an atypical chest pain. Therefore, she will be discharged to home with follow up from her PCP. I also do not have suspicion for PE, since the pt is not hypoxic or tachycardic. Pt is hemodynamically stable, alert and oriented x3. - Chest Pain Differential Diagnosis/HQI/PQRI: Acute SC, ACS, Angina, CHF, Chest Wall, GI Disease - Diagnoses Provider Diagnoses: Atypical chest pain Discharge - Discharge Plan Condition: Stable Disposition: HOME Patient Education Materials: Chest Pain (ED) Referrals: Lizbeth Graff PA [Physician [employer]] - 3 Days Additional Instructions: Please follow up with your primary care provider. RETURN TO THE ED FOR ANY WORSENING SYMPTOMS. The documentation as recorded by the Boy le Angela accurately reflects the service I personally performed and the decisions made by me, Titus Ortiz MD.
== END 2017-03-22 15:30 | disposition home or self-care (01) ==
LOC: ED 11:23
DX: R07.89 Other chest pain (principal); M75.32 Calcific tendinitis of left shoulder; Z87.891 Personal history of nicotine dependence; Z88.6 Allergy status to analgesic agent; Z88.0 Allergy status to penicillin; Z88.8 Allergy status to other drugs, medicaments and biological substances
CPT/HCPCS: 36415; 71045; 80053; 82550; 82553; 83605; 83690; 83735; 83880; 84443; 84484; 84702; 85025; 85730; 93005; 99282

== ENCOUNTER 2019-07-31 07:30 | Inpatient (IN) ==
[2019-08-02] MEDS ORDERED: Vancomycin(*) 1,250 MG in NS 0.9% 250 ml 250 ML IVPB SCH
[2019-08-02] MEDS ORDERED: Lactated Ringers 1000 ml BAG 1,000 ML IV SCH (06:00)
[2019-08-02] MEDS ORDERED: Buffered Lidocaine 1% SYRIN 1 ml INTRADERM ONE (11:59)
[2019-08-02] MEDS ORDERED: Lidocaine 1% w EPI 1:200,000 SDV 30 ML VIAL ONE (13:35)
[2019-08-02] MEDS ORDERED: Bacitracin INJECTION 50,000 UNITS ONE (13:35)
[2019-08-02] MEDS ORDERED: Midazolam 5 mg/5 ml VIAL 1 mg/ml 5 ml VIAL (5 mg) ONE (13:58)
[2019-08-02] MEDS ORDERED: fentaNYL 250 mcg/5 ml 50 MCG/ML 5 ml VIAL (250 MCG) ONE (13:58)
[2019-08-02] MEDS ORDERED: Ondansetron 4 mg VIAL 2 MG/ML 2 ml VIAL ONE ×2 (14:00→16:38)
[2019-08-02] MEDS ORDERED: Propofol 10 MG/ML 20 ML BTL ONE (14:00)
[2019-08-02] MEDS ORDERED: Rocuronium 50 mg VIAL 10 mg/ml 5 ml VIAL (50 mg) ONE (14:00)
[2019-08-02] MEDS ORDERED: Dexamethasone IV 4 MG/ML VIAL 1 ml VIAL ONE ×3 (14:00→16:38)
[2019-08-02] MEDS ORDERED: Lidocaine 2% PF 5 ML VIAL ONE (14:00)
[2019-08-02] MEDS ORDERED: Ketamine HCL 50 mg/ml 10 ml VIAL (500 MG) ONE (14:01)
[2019-08-02] MEDS ORDERED: Remifentanil 2 MG VIAL ONE (14:01)
[2019-08-02] MEDS ORDERED: EPHEDrine (Pressors) 50 MG/ML VIAL ONE (15:53)
[2019-08-02] MEDS ORDERED: Phenylephrine 40 mcg/mL 10mL (400mcg) SYRINGE ONE (15:53)
[2019-08-02] MEDS ORDERED: HYDROmorphone 1 MG/1 ML SYRINGE ONE ×2 (17:35→18:14)
[2019-08-02] MEDS ORDERED: Flumazenil 0.5 mg/5 ml 0.1 MG/ML 5 ml VIAL IV PRN (17:49)
[2019-08-02] MEDS ORDERED: Naloxone 0.4 mg VIAL 0.4 mg/ml 1 ml VIAL IV PRN (17:49)
[2019-08-02] MEDS ORDERED: Acetaminophen IV 1 GM/100ML 1,000 MG/100 ML VIAL IVPB ONE (17:49)
[2019-08-02] MEDS ORDERED: DiMENhydriNATE IV 50 mg/ml 1 ml VIAL IV PUSH PRN (17:49)
[2019-08-02] MEDS ORDERED: fentaNYL 100 mcg/2 ml 50 MCG/ML VIAL IV PRN (17:49)
[2019-08-02] MEDS ORDERED: Ondansetron 4 mg VIAL 2 MG/ML 2 ml VIAL IV PRN ×2 (17:49→18:01)
[2019-08-02] MEDS ORDERED: Magnesium Hydroxide LIQ 30 ML UDC PO PRN (18:01)
[2019-08-02] MEDS ORDERED: Acetaminophen IV 1 GM/100ML 100 ML ONE (18:13)
[2019-08-02] MEDS: HYDROmorphone 1 MG/1 ML SYRINGE IV PRN ×5 (18:21→18:59)
[2019-08-02] MEDS ORDERED: Dextrose 50% Syringe 50 ml 25 GM/50 ML SYRINGE IV PUSH PRN (19:10)
[2019-08-02] MEDS ORDERED: oxyCODONE/Acetamin 5/325 mg TAB ONE (19:58)
[2019-08-02] MEDS ORDERED: Nortriptyline 25 mg TAB PO SCH (21:00)
[2019-08-02] MEDS ORDERED: Pregabalin 25 mg CAP (*) PO SCH (21:00)
[2019-08-02] MEDS ORDERED: Senna TAB 8.6 mg TAB PO PRN (21:14)
[2019-08-02] MEDS ORDERED: Pregabalin 50 mg CAP (*) PO ONE (21:18)
[2019-08-02] MEDS ORDERED: Albuterol HFA INHALER 8 gm MDI INH PRN (21:34)
[2019-08-02] MEDS: HYDROcodone/ACETAMIN 5/325 mg TAB PO SCH (22:18)
[2019-08-02] MEDS: clonazePAM 0.5 mg TAB (*) PO SCH (22:19)
[2019-08-02] MEDS: ALOSETRON PO SCH (22:21)
[2019-08-03] MEDS: clonazePAM 0.5 mg TAB (*) PO SCH (08:16)
[2019-08-03] MEDS: HYDROcodone/ACETAMIN 5/325 mg TAB PO SCH (08:17)
[2019-08-03] MEDS: Pregabalin 50 mg CAP (*) PO SCH ×2 (08:17→13:27)
[2019-08-03] MEDS: Insulin LISPRO 100 units/ml(*) SUBCUT SCH ×2 (08:20→13:39)
[2019-08-03] MEDS: ALOSETRON PO SCH (08:20)
[2019-08-03] MEDS ORDERED: DULoxetine DR 60 mg CAP PO SCH (09:00)
[2019-08-03 12:06] VITALS: BP 116/70
[2019-08-05] MEDS ORDERED: Scopolamine PATCH Remove NOTE PATCH OFF ONE (17:50)
== END 2019-08-03 13:40 | disposition home or self-care (01) | DRG 321 ==
LOC: AA 08-02 10:46 → SSU 08-02 20:34
PROVIDERS: ADMIT Neurological Surgery; ATTEND Hospitalist